=== PATIENT | female | born 1990 | race Hispanic/Latino ===

== ENCOUNTER 2018-09-28 09:55 | Emergency (ER) | payer BC ==
[2018-09-28 11:14] LABS: #Basophils 0.1 thou/uL (0.0-0.2); #Eosinphils 0.1 thou/uL (0.0-0.7); #Lymphocytes 2.8 thou/uL (1.20-3.40); #Monocytes 0.5 thou/uL (0.11-0.59); #Neutrophils 6.1 thou/uL (1.40-6.50); %Basophils 0.8 % (0.0-1.0); %Eosinophils 0.9 % (0.0-10.0); %Lymphocytes 29.7 % (21.0-51.0); %Neutrophils 63.6 % (42.0-75.0); Hemoglobin 12.9 g/dL (12.0-16.0); Mean Corpuscular Hemoglobin 28.5 pg (27.0-31.0); Mean Platelet Volume 8.3 fL (7.4-10.4); Platelet Count 421 thou/uL (130-400); RBC Distribution Width 12.8 % (11.5-14.5); Red Blood Cell (RBC) Count 4.55 mill/uL (4.20-5.40); White Blood Cell (WBC) Count 9.5 thou/uL (4.8-10.8)
[2018-09-28 11:25] LABS: BHCG - Serum POSITIVE (NEGATIVE); Pregs Control Background? CLEAR/WHITE (CLR/WHITE); Pregs Control Bar Appear? YES (CONTROL BAR)
[2018-09-28 11:50] LABS: Bilirubin Negative (Negative); Blood, Urine Negative (Negative); Clarity CLEAR (Clear); Glucose, Urine (Dipstick) Negative (Negative); Leukocyte Negative (Negative); Nitrite Negative (Negative); Protein, Urine (Dipstick) Negative (Neg-Trace); Specific Gravity, Urine 1.006 (1.002-1.036); pH, Urine 7.5 (5.0-9.0)
--- NOTE | 2018-09-28 12:52 | CON ---
DATE OF CONSULTATION: 09/28/2018 TIME: At 11:55 until 12:15 p.m. LOCATION: ER bed 20. REQUESTING PROVIDER: Donna (emergency room physician drilling assistant). REASON FOR CONSULT: Early . HISTORY OF PRESENT ILLNESS: This is a 28-year-old 2, para 0 with a prior miscarriag e, who when I was originally called about 30 minutes prior to seeing the patient, the physician janki corrales was concerned that she may have had a prior ectopic . The patient arrives here for low er abdominal cramping, but no bleeding or passage of clots. When I assessed the patient at bedside a nd reviewed her history, the patient did not have an ectopic , but her history was most comp atible with an early spontaneous loss. The patient did not receive methotrexate, will requ makenzie surgery, because there was no prior ectopic diagnosis made. The consultation that I had on the p princess with a rule out ectopic was a miscommunication between the patient and the initial provider. I have reviewed the patient's history and again confirmed that she had 1 prior spontaneous loss that di d not require surgical intervention. On review of systems, she is afebrile, has not passed any vagin al bleeding or clots, has had no recent intercourse, and is otherwise without other associated sympto ms. PAST MEDICAL HISTORY: Negative. PAST SURGICAL HISTORY: Tubes in ears. ALLERGIES: None. SOCIAL HISTORY: Negative for alcohol, tobacco, and drug use. PHYSICAL EXAMINATION: VITAL SIGNS: Blood pressures are 110s/70s with pulse in the 70s. Beta hCG was 1700 or approximate e arlier today. She was UCG positive, which prompted the beta hCG. GENERAL: Overall, on physical exam, generally, she is in no acute distress and was able to answer qu estions. ABDOMINAL EXAM: Deferred, as the history did not support an ectopic or any intraperitoneal abnormality. On ultrasound, ultrasound revealed what appeared to be a 5-week gestational sac intrauterine, but no yolk sac was yet seen. No other abnormalities. This was by verbal report. ASSESSMENT: 1. This is a G2, P0 with 1 prior miscarriage, who is now at 5 weeks by LMP (LMP 08/28/2018) with low er abdominal cramping, but no bleeding. History most compatible with a primary diagnosis of early pr egnancy. 2. Other diagnosis of rule out ectopic is not likely, as she has no risk factors and has no prior hi story of an ectopic. PLAN: 1. Rh type checked and she is Rh positive. 2. RhoGAM not needed since she has no bleeding. 3. RhoGAM not indicated, as she is Rh positive. 4. No evidence of ectopic or at risk at this stage. 5. The patient has her own Family Medicine OB provider, Dr. Carlotta Ovalle, who will follow up with a r epeat ultrasound in 2 weeks for confirmation of viability. Once again, I was called to see the patient for possible rule out ectopic, but that was a miscommunic ation, as the patient did not have a prior ectopic history.
--- NOTE | 2018-09-28 14:20 | ULT ---
PELVIC ULTRASOUND WITH BELTRAN SCALE AND DOPPLER COLOR FLOW AND SPECTRAL ANALYSIS: INDICATION: Pelvic pain, cramping. FINDINGS: Doppler evaluation reveals flow to each ovary. Physiologic-appearing cyst in the right ovary is pres ent. There is no focal uterine lesion identified. Within the region of the endometrium, there is a hypoechoic focus indicative of a gestational sac wit hout evidence of a yolk sac or pole. Nonspecific free pelvic fluid is present. Utilizing gestational sac measurement parameters, average gestational age by ultrasound is 5 weeks 1 day placing estimated date of delivery at 05/30/2019. IMPRESSION: 1. Probable intrauterine gestational sac, although too early for reliable assessment. Therefore, re commend correlation with serial HCG followup as well as short-term imaging followup for continued ass essment. 2. Mild nonspecific free pelvic fluid. POS: DAPHNEY
== END 2018-09-28 12:31 | disposition home or self-care (01) ==
LOC: ERS 09:55
DX: O99.89 Other specified diseases and conditions complicating pregnancy, childbirth and the puerperium (principal); R10.30 Lower abdominal pain, unspecified; O99.341 Other mental disorders complicating pregnancy, first trimester; F32.9 Major depressive disorder, single episode, unspecified; Z3A.01 Less than 8 weeks gestation of pregnancy
CPT/HCPCS: 36415; 76856; 81003; 84702; 84703; 85025; 86900; 86901

== ENCOUNTER 2018-10-05 09:41 | Outpatient (CLI) | payer BC ==
--- NOTE | 2018-10-05 12:09 | ULT ---
RIGHT UPPER QUADRANT ULTRASOUND: Date: 10-05-18 Provided Clinical History: Right upper quadrant pain. FINDINGS: The visualized IVC and pancreas appear normal. The liver demonstrates no evidence for mass or intrahe patic biliary ductal dilatation. The common duct is not dilated. Gallbladder demonstrates no stones, wall thickening or pericholecystic fluid. Right kidney demonstrates no hydronephrosis or mass. IMPRESSION: Unremarkable right upper quadrant ultrasound. POS: TPC
== END 2018-10-05 09:42 | disposition home or self-care (01) ==
LOC: SCSULT 09:41
PROVIDERS: ATTEND Physician Assistant
DX: R10.811 Right upper quadrant abdominal tenderness (principal)
CPT/HCPCS: 36415; 76705; 83036; 84144; 84702

== ENCOUNTER 2019-01-04 12:44 | Outpatient (CLI) | payer OTHER ==
--- NOTE | 2019-01-04 16:11 | ULT ---
OB ULTRASOUND: Date: 01-04-19 History: Positive . evaluation. FINDINGS: There is evidence of a single intrauterine gestation in variable presentation. Cardiac doppler demons trates heart tones with a heart rate of 147 beats/minute. The placenta is located posteriorly. The cervical os is not well visualized due to shadowing. The edg e of the placenta is also not well seen. While there does not appear to be evidence of placenta previ a, follow up evaluation is suggested given difficulty in visualization in this region. There is a normal amount of amniotic fluid. There is a rounded hypoechoic mass like appearing structure seen measuring 2 cm in greatest dimension s which is in a retroplacental location. Color flow evaluation does not demonstrate flow within this structure. This does not appear to be within the myometrium to suggest a small uterine fibroid. The e xact etiology is uncertain. This does not demonstrate typical findings of a retroplacental hemorrhage given rounded more mass like configuration. Cervical length measures 5.3 cm based on transabdominal imaging. measurements: BPD 4.5 cm 19 weeks 4 days HC 17.27 cm 19 weeks 6 days AC 14.07 cm 19 weeks 3 days FL 3.19 cm 19 weeks 6 days The estimated gestational age by ultrasound is 19 weeks 3 days with an JUANA of 05-28-19. Gestational ag e by last menstrual period is 19 weeks 1 day. Estimated weight by ultrasound is 307 grams (11 oz.). This represents 77th percentile for weight. anatomical structures not well not evaluated on this exam due to very early intrauterine gestat ional age. No definitive anomalies are able to be delineated based on this exam. IMPRESSION: 1. Hypoechoic structure measuring 2 cm which may be within the more posterior aspect of the placenta and possibly represents a chorioangioma, but the exact location is difficult to determine. This does not have the appearance of retroplacental hemorrhage. However, short internal follow up examination i n 4-6 weeks is recommended. 2. Difficulty in visualization of the leading edge of the placenta in relation to the internal cervic al os. There does not appear to be evidence of placenta previa. This can also be reevaluated on follo w up exam in 4-6 weeks. 3. Single intrauterine gestation in variable presentation with heart tones documented. The josh mated gestational age by ultrasound is 19 weeks 3 days with JUANA on 05-28-19. Estimated weight is 307 grams (11 oz.). Code T POS: SJTerri
== END 2019-01-04 12:45 | disposition home or self-care (01) ==
LOC: SCSULT 12:44
PROVIDERS: ATTEND Family Medicine
DX: Z34.92 Encounter for supervision of normal pregnancy, unspecified, second trimester (principal); Z3A.19 19 weeks gestation of pregnancy
CPT/HCPCS: 76805

== ENCOUNTER 2019-03-11 06:39 | Outpatient (CLI) | payer OTHER ==
--- NOTE | 2019-03-11 08:03 | ULT ---
Obstetrical ultrasound: 03/11/2019 COMPARISON: 01/04/2019 History: 29-year-old female undergoing assessment of anatomy, abnormality seen within the placenta on the prior examination TECHNIQUE: Multiplanar grayscale sonographic imaging of the gravid uterus obtained. FINDINGS: Single intrauterine gestation present with vertex presentation. Cervical length is approxim ately 4.2 cm. Placenta located posteriorly with no evidence for previa or abruption. Hypoechoic structure noted on prior examination associated with the placenta is not visualized on this exam. heart rate is 124 bpm. Four-chamber heart view, nose and lips, intracranial contents, and umbilical cord appear unremarkable. bladder, stomach, kidneys, and spine appear unremarkable. Amniotic fluid index is estimated at 13.3 cm. biometry: BPD 7.3 cm 29 weeks 3 days HC 27.4 cm 30 weeks 0 days AC 24.8 cm 29 weeks 1 day FL 5.8 cm 30 weeks 2 days Average age based on ultrasound is 29 weeks 5 days. Estimated date of delivery is 05/22/2019. Estimated weight is 1409 g +/- 206 g. Impression: Single intrauterine gestation as detailed above. No abnormalities are seen. The abnormality in the region of the placenta noted on the prior examination is not visualized on thi s scan.
== END 2019-03-11 06:40 | disposition home or self-care (01) ==
LOC: BICULT 06:39
PROVIDERS: ATTEND Family Medicine
DX: Z34.03 Encounter for supervision of normal first pregnancy, third trimester (principal); Z3A.29 29 weeks gestation of pregnancy
CPT/HCPCS: 36415; 76805; 82728; 82950; 85025; 87389

== ENCOUNTER 2019-03-15 17:45 | Day surgery (SDC) | payer OTHER ==
[2019-03-15 18:16] VITALS: BMI 35.6
--- NOTE | 2019-03-15 20:11 | ER ---
DATE OF SERVICE: 03/15/2019 TIME OF SERVICE: 1940 hours. PRESENTING COMPLAINT: The patient slipped and fell on bottom at store at 29 weeks' gestation. HISTORY OF PRESENT ILLNESS: Ms. Contreras is a 29-year-old, G1, P0, at 29 weeks with stated JUANA, sees Dr. Carlotta Ovalle. She reports she slipped and fell at a grocery store and landed on her bottom. She reports some decreased movement. No contractions. No bleeding. No rupture of membranes. INTERNATIONAL FREIGHT FORWARDER HISTORY: The patient's antepartum records not available on the unit. She reports being a primigravida with an uncomplicated . PAST MEDICAL HISTORY: None. PAST SURGICAL HISTORY: None. ALLERGIES: LATEX. MEDICATIONS: vitamins. SOCIAL HISTORY: Denies tobacco, alcohol, or drug use. FAMILY HISTORY: Noncontributory. REVIEW OF SYSTEMS: Noncontributory. PHYSICAL EXAMINATION: GENERAL: female. VITAL SIGNS: Blood pressure 98/85, pulse 85, respirations 18, temperature 97.9. HEENT: Within normal limits. LUNGS: Clear to auscultation bilaterally. HEART: Regular rate and rhythm. ABDOMEN: Soft and nontender without palpable contractions. Fundal height of 29 cm. No CVA tenderness noted. The patient has no visible bruising on her backside. FHTs are 140s. PELVIC: Deferred. EXTREMITIES: No clubbing, cyanosis, or edema. Prolonged monitoring, nonstress test was carried out for greater than 1 hour, which revealed no contractions, reactive fetus with a baseline of 140s to 150s, positive acceleration, no decelerations, no contractions noted. The patient stated she was feeling significant movement prior to discharge and movement was audible on the monitor. IMPRESSION: Status post slip and fall without evidence of abdominal trauma or signs or symptoms of placental abruption at 29 weeks. PLAN: Reassurance. The patient is discharged home with ER precautions. Keep scheduled followup with Dr. Carlotta Ovalle. Job ID: [id number]
== END 2019-03-15 19:55 | disposition home or self-care (01) ==
LOC: L&D/OP 17:45
PROVIDERS: ATTEND Family Medicine
DX: O36.8130 Decreased fetal movements, third trimester, not applicable or unspecified (principal); Z3A.29 29 weeks gestation of pregnancy; Z79.899 Other long term (current) drug therapy; Z91.040 Latex allergy status; W01.0XXA Fall on same level from slipping, tripping and stumbling without subsequent striking against object, initial encounter; Y92.512 Supermarket, store or market as the place of occurrence of the external cause
CPT/HCPCS: 99282

== ENCOUNTER 2019-05-28 08:58 | Inpatient (IN) | payer OTHER ==
[2019-05-28 09:30] VITALS: BMI 44.9
[2019-05-28] MEDS ORDERED: hydrALAZINE 20 MG/ML VIAL SLOW IVP PRN ×2 (10:16→11:47)
--- NOTE | 2019-05-28 10:19 | PDOC.LDHP ---
Labor and Delivery H&P Chief complaint: other (labor check) HPI: Time: 1010 Location: Triage L&D A Patient of Dr Dee Campos ([facility]) HPI: Ms. Contreras presents for labor check. Patient reports slight vaginal mucus discharge. She reports that she had a brief episode of chest tightness this morning. She reports achiness in her back and ankles. She reports orthostasis. Review of Systems: Review of systems is negative unless reported in HPI. Current gestational age (weeks): 39 (39.5) Due date: 05/30/19 Dating criteria: first trimester ultrasound Grav: 2 (Functional primigravida) Para: 0 (0010) OB History Details: Patient had a miscarriage at 6 weeks gestation when she was 20 yo. Current complications: none Abnormal US findings: No Past Medical History: None Current medications: pre-anabell vitamins Previous surgical history: none, other (tubes in ears during childhood) Allergies/Adverse Reactions: Allergies Allergy/AdvReac Type Severity Reaction Status Date / Time latex Allergy Verified 05/28/19 09:24 Social history: alcohol use (1 drink/week) - Physical Exam General: NAD Heart: RRR Lungs: CTAB Abdomen: gravid Extremeties: trace edema FHT: category 2, late decelerations (2 intermittent late decels..but no longer recurrent), absent or minimal variables - Vaginal Exam cm dilated: 3 Effacement: 50% - OB Labs Blood type: O RH: positive Antibody Screen: negative HIV: negative RPR: negative HEPSAg: negative 1 hour GCT: negative GBS: negative Rubella: immune - Assessment Threated labor at Full term...latent phase; GBS negative - Plan Plan: observation in L&D (We will reassess in 2 hours for cervical change. Close monitoring of FHTs...currently lates have spont resolved and now with mild -mod variability.)
[2019-05-28] MEDS ORDERED: Promethazine HCl 25 MG/ML VIAL IM PRN ×3 (11:47→15:45)
[2019-05-28] MEDS ORDERED: Ibuprofen 800 MG TAB PO PRN (11:47)
[2019-05-28] MEDS ORDERED: Butorphanol Tartrate 1 MG/ML VIAL SLOW IVP PRN (11:47)
[2019-05-28] MEDS ORDERED: HYDROcodone/Acetaminophen 5/325 mg Tablet PO PRN ×2 (11:47)
[2019-05-28] MEDS ORDERED: NS / Oxytocin 40 units/1000ml 1,000 ML IV PRN (11:47)
[2019-05-28] MEDS ORDERED: Lidocaine 1% (PF) 30 ML VIAL SC PRN (11:47)
[2019-05-28] MEDS ORDERED: Ondansetron PF 4 MG/2 ML Vial IVP PRN ×3 (11:47→15:45)
--- NOTE | 2019-05-28 11:47 | PDOC.EVN ---
Event Note - Event Note Event Note: 1147 Follow up: Patient now 4cm...will admit to Dr Larson who is covering. [place] Text sent
[2019-05-28] MEDS: Lactated Ringer's 1,000 ML IV SCH ×2 (12:36→18:55)
[2019-05-28 13:11] LABS: Hemoglobin 12.3 g/dL (12.0-16.0); Mean Corpuscular HGB CONC 32.5 g/dL (32.0-36.0); Mean Corpuscular Hemoglobin 29.2 pg (27.0-31.0); Mean Corpuscular Volume 89.7 fL (78.0-98.0); Mean Platelet Volume 10.4 fL (7.4-10.4); Platelet Count 212 thou/uL (130-400); RBC Distribution Width 12.8 % (11.5-14.5); White Blood Cell (WBC) Count 13.8 thou/uL (4.8-10.8)
--- NOTE | 2019-05-28 13:29 | PDOC.EVN ---
Event Note - Event Note Event Note: OBGYN recreation therapy aides teacher: FHT review Asked by patient's RN and Dr Larson top eval strip. Timeis 1325. Patient has just had SROM with malodorous fluid. temp however is 99. I suspect subclinical infection, even though temp not 100.4. Strip still cat 2...minimal variability noted, no decelks. As strip is persistent Cat 2, recommend primary CS for nonreassuring FHTs remote from delivery in the setting od possible subclinical infection. I have just left Dr Larson a tiger text and told the same information to the patient's nurse, erica
[2019-05-28] MEDS ORDERED: Ampicillin 2 GM in Sodium Chloride 0.9% 100 ML IVPB SCH (13:45)
[2019-05-28] MEDS ORDERED: Bicitra 30 ML UDCUP ONE (13:45)
[2019-05-28 13:48] LABS: Syphilis Antibody Nonreactive (Nonreactive); Syphilis Antibody Index 0.04 S/CO (<1.00 Non-Reactive)
[2019-05-28 13:49] LABS: HBSAg Index 0.24 S/CO (0-0.99); HIV (1/2) Antibody/Antigen Non-Reactive (NonReactive); HIV 1/2 INDEX 0.12 S/CO (<1.00); Hep B Surf Ag Non-Reactive S/CO (NonReactive)
--- NOTE | 2019-05-28 13:59 | PDOC.EVN ---
Event Note - Event Note Event Note: Called to L&D after SROM with thick, particulate meconium with foul smell and continued Category II strip with minimal variability. We attempted repoisitioning, IVF bolus without improvement in the strip. We did start amp and gent for the foul smelling fluid. No fever at this time. After discussion with the patient and Dr. Peterson we agreed that delivery would be the best course of action at this time. Anesthesia called. Dr. Palacios and myself with do the surgery with Dr. Peterson as supervising physician.
[2019-05-28] MEDS ORDERED: Bicitra 30 ML UDCUP PO SCH (14:00)
[2019-05-28] MEDS ORDERED: GENTAMICIN SULFATE IVPB SCH (14:00)
[2019-05-28] MEDS ORDERED: Azithromycin 500 MG in Sodium Chloride 0.9% 250 ML 250 ML IVPB SCH (14:00)
[2019-05-28] MEDS ORDERED: SODIUM CHLORIDE 0.9% IVPB SCH (14:00)
[2019-05-28] MEDS ORDERED: Oxytocin 10 UNITS/ML VIAL ONE ×2 (14:09→15:28)
[2019-05-28] MEDS ORDERED: MORPHINE 5 MG/10 ML PF VIAL ONE (14:09)
[2019-05-28] MEDS ORDERED: Ondansetron PF 4 MG/2 ML Vial ONE ×4 (14:09→15:40)
[2019-05-28] MEDS ORDERED: ePHEDrine/0.9% NaCl/PF SYRINGE 50 mg/10 ml ONE (14:09)
[2019-05-28] MEDS ORDERED: Meperidine HCl/PF 25 MG/ML VIAL SLOW IVP PRN ×2 (14:27→15:45)
[2019-05-28] MEDS ORDERED: Promethazine HCl 25 MG SUPP PR PRN ×2 (14:27→15:45)
[2019-05-28] MEDS ORDERED: L&D-Morphine 4 MG/ML VIAL SLOW IVP PRN ×2 (14:27→15:45)
[2019-05-28] MEDS ORDERED: Naloxone HCl 0.4 mg/ml Vial IV PRN ×2 (14:27→15:45)
[2019-05-28] MEDS ORDERED: Ketorolac Tromethamine 30 MG/ML VIAL IVP PRN ×2 (14:27→15:45)
[2019-05-28] MEDS ORDERED: Ondansetron HCl/PF 4 MG/2 ML Vial IVP PRN ×2 (14:27→15:45)
[2019-05-28] MEDS ORDERED: diphenhydrAMINE 50 MG/ML VIAL IVP PRN ×2 (14:27→15:45)
[2019-05-28] MEDS ORDERED: Naloxone HCl 0.4 mg/ml Vial IVP PRN ×4 (14:27→15:45)
[2019-05-28] MEDS ORDERED: HYDROmorphone 2 MG/ML VIAL SLOW IVP PRN ×2 (14:27→15:45)
[2019-05-28] MEDS ORDERED: Communication Order-Pharmacy FS SCH ×2 (14:30→15:45)
[2019-05-28] MEDS ORDERED: Ketorolac Tromethamine 30 MG/ML VIAL IVP SCH ×2 (14:30→15:45)
[2019-05-28] MEDS ORDERED: Midazolam HCl 2 mg/2 ml Vial ONE (14:59)
[2019-05-28] MEDS ORDERED: Lidocaine 1% (PF) 30 ML VIAL ONE (15:13)
[2019-05-28 15:18] LABS: pH (Cord, venous) 7.36 (7.32-7.43)
--- NOTE | 2019-05-28 15:28 | PDOC.OPDEL ---
OB Operative/Delivery Note Delivery Dr/Surgeon: Neo/Nicholas/Philip (Primary: Philip, Secondary Neo, Second Assist: Nicholas) Assist: Nicholas Pre-Delivery Diagnosis: active labor, non-reassuring tracing, ruptured membrane, other (Suspected subacute IAI) Procedure/Post Delivery Dx: primary low transverse CS (2 layer uterine closure) Anesthesia: spinal - Additional Findings/Plan Placenta delivered: spontaneous (Sent to path, NX x1 reduced, 3VC) findings: low transverse hysterotomy without extension, normal uterus, normal tubes, normal ovaries, other (There was a persistent ooze froma venous keita at mid hysterotomy persisting after primary closure. I rendered this hemostatic by 2 figure of 8 stictches free from bladder dome.) Estimated blood loss: See op Note (I suspect 700ml) Compilations/Other Findings: Vigorous Spont Cry NICU present No resus needed Strong Amine odor to AF Placenta to path CORD GASES SENT SEE FULL DICTATION BY OTHER SURGEONS Post delivery plan: routine recovery
[2019-05-28] MEDS ORDERED: ePHEDrine 50 MG/ML VIAL ONE (15:40)
[2019-05-28] MEDS ORDERED: diphenhydrAMINE 25 MG CAP PO PRN (16:03)
[2019-05-28] MEDS ORDERED: Misoprostol 200 MCG TAB PR PRN (16:03)
[2019-05-28] MEDS ORDERED: Lanolin Ointment 7 GM TUBE TOP PRN (16:03)
[2019-05-28] MEDS ORDERED: Acetaminophen 325 MG TAB PO PRN (16:03)
[2019-05-28] MEDS ORDERED: Methylergonovine 0.2 MG TAB PO PRN (16:03)
[2019-05-28] MEDS ORDERED: Methylergonovine 0.2 MG/ML VIAL IM PRN (16:03)
[2019-05-28] MEDS ORDERED: Naloxone HCl 0.4 mg/ml Vial ONE (16:48)
[2019-05-28] MEDS ORDERED: Ketorolac Tromethamine 30 MG/ML VIAL ONE (16:48)
[2019-05-28] MEDS ORDERED: hydrALAZINE 20 MG/ML VIAL SLOW IVP SCH (18:00)
[2019-05-28] MEDS: metroNIDAZOLE 500 MG in Premix Bag 1 BAG IVPB SCH (21:33)
[2019-05-28] MEDS: Ampicillin 2 GM in Sodium Chloride 0.9% 100 ML IVPB SCH ×2 (21:33→23:32)
[2019-05-28] MEDS: Ferrous Sulfate 325 MG TAB PO SCH (21:38)
[2019-05-29] MEDS: metroNIDAZOLE 500 MG in Premix Bag 1 BAG IVPB SCH ×2 (00:54→10:04)
[2019-05-29] MEDS ORDERED: Gentamicin Sulfate 100 MG in Premix Bag 1 BAG IVPB SCH (02:00)
[2019-05-29] MEDS ORDERED: HYDROcodone/Acetaminophen 5/325 mg Tablet PO PRN ×3 (04:00→18:28)
[2019-05-29] MEDS: Ampicillin 2 GM in Sodium Chloride 0.9% 100 ML IVPB SCH ×3 (05:38→18:18)
[2019-05-29] MEDS: Lactated Ringer's 1,000 ML IV SCH ×2 (05:50→13:40)
[2019-05-29 06:45] LABS: Band 19 % (5-11); Eosinophils 1 % (0-10); Hemoglobin 10.5 g/dL (12.0-16.0); Lymphocytes 11 % (21-51); MDiff Complete? YES; Mean Corpuscular HGB CONC 32.1 g/dL (32.0-36.0); Mean Corpuscular Volume 90.4 fL (78.0-98.0); Mean Platelet Volume 9.8 fL (7.4-10.4); Monocytes 3 % (0-10); Neutrophil 66 % (42-75); Platelet Count 194 thou/uL (130-400); Red Blood Cell (RBC) Count 3.63 mill/uL (4.20-5.40); White Blood Cell (WBC) Count 18.8 thou/uL (4.8-10.8)
[2019-05-29] MEDS: Ferrous Sulfate 325 MG TAB PO SCH ×2 (07:29→19:09)
--- NOTE | 2019-05-29 08:17 | PDOC.PP ---
Post Progress Note Post Day #: 1 Subjective: Pt is resting in bed. Reports having a little pain. Reports feeling feverish throughout the night. Denies any chills. Reports lochia as light. Has not gotten up and moved around. Denies passing gas. Has eaten some clears. Reported some mild nausea. Denies any vomiting. Denies any headaches, lightheadness or dizziness. Denies any chest pain or SOB. Denies any leg swelling. Pt reports having some increased pain this morning. PO intake tolerated: yes Flatus: no Ambulation: no Vital Signs (12 hours) Temp Pulse Resp BP Pulse Ox 05/29/19 07:42 98.7 F 67 14 85/52 L 96 05/29/19 05:30 99.5 F 72 16 101/58 L 05/28/19 23:43 99.5 F 73 16 113/57 L 05/28/19 20:30 99.5 F 80 16 128/60 Weight Weight 104.326 kg - Physical Examination General: NAD Cardiovascular: no m/r/g, RRR Respiratory: clear to auscultation bilaterally Abdominal: + bowel sounds, lochia (light), no distention Deviation from normal: Uterus still moderately tender to palpation. Not hot to the touch. Fundus firm & at: below umbilicus Extremities: negative homans (B) Skin: CS incision dry & intact (wound vac in place. No sign of defect or infection at this time.), no rash Neurological: no gross focal deficits Psychiatric: A&Ox3, normal affect Result Diagrams: 05/29/19 05:17 Additional Labs: Post Labs Blood Type O POSITIVE 05/28/19 12:49 Hep Bs Antigen Non-Reactive S/CO (NonReactive) 05/28/19 12:49 (1) Delivery by section Code(s): [id number] - Status: Acute (2) Intrauterine infection Code(s): O98.919 - UNSP MATERNAL INFEC/PARASTC DISEASE COMP PREG, UNSP TRI Status: Acute - Assessment/Plan 29 yo delivered TAGA male via primary LTCS @ 39.5 weeks on @ 1442. Pt went to due to concern for subclinical Chorio and Non- reassuring heart tones. Post Op Day1 -Routine Post Care. -Pt reports having a little pain. Will hue tylenol and ibuprofen and have norco for breakthrough. -- Will consult . Reports doing well at this time. -Hgb down from 12.3->10.5 today. BP this morning a little low. will continue to monitor and will give fluid bolus if low. Subclinical Chorioamnioitis -WBC 18.8. -Placenta sent for pathology -Pt reports feeling feverish all night. No recorded fevers. -Pt receiving Amp/Gent/Flagyl for abx coverage. Will continue for 48 hours due to pt subjective fevers.
[2019-05-29] MEDS ORDERED: Adacel (T-DAP) 0.5 ML SYRINGE IM ONE (09:00)
[2019-05-29] MEDS: Prenatal Vitamin 1 TAB PO SCH (10:05)
[2019-05-29] MEDS: Ibuprofen 800 MG TAB PO SCH ×2 (14:30→23:09)
[2019-05-29] MEDS: HYDROcodone/Acetaminophen 5/325 mg Tablet PO PRN ×2 (18:34→22:35)
[2019-05-29] MEDS: Simethicone Chewable 80 MG TAB PO PRN (20:48)
[2019-05-29] MEDS ORDERED: Sodium Chloride 0.9% 10 ML ONE (23:35)
[2019-05-30] MEDS: Ampicillin 2 GM in Sodium Chloride 0.9% 100 ML IVPB SCH ×2 (00:15→05:00)
[2019-05-30] MEDS: Lactated Ringer's 1,000 ML IV SCH ×3 (00:26→13:52)
[2019-05-30] MEDS: Ibuprofen 800 MG TAB PO SCH ×3 (05:00→21:26)
--- NOTE | 2019-05-30 08:47 | PDOC.PP ---
Post Progress Note Post Day #: 2 Subjective: Pt resting in bed. Reports pain being well controlled. Reports tolerating PO. Chris any n/v. Pt reports passing gas but no BM yet. Denies any fevers/chill or feeling hot. Denies any chest pain or SOB. Denies any swelling. Denies any dizziness, lightheadness or vision changes. PO intake tolerated: yes Flatus: yes Ambulation: yes Vital Signs (12 hours) Temp Pulse Resp BP BP Pulse Ox 05/30/19 07:40 97.9 F 67 16 132/63 99 05/30/19 05:00 98.9 F 70 16 89/51 L 05/29/19 23:12 99.0 F 83 16 138/70 Weight Weight 104.326 kg - Physical Examination General: NAD Cardiovascular: no m/r/g, RRR Respiratory: clear to auscultation bilaterally, non-labored breathing Abdominal: + bowel sounds, lochia (reports as light), no distention, appropriately TTP Fundus firm & at: below umbilicus Extremities: negative homans (B) Skin: CS incision dry & intact (Wound vac in place. No sign of redness or drainage at this time.), no rash Neurological: no gross focal deficits Psychiatric: A&Ox3, normal affect Result Diagrams: 05/29/19 05:17 Additional Labs: Post Labs Blood Type O POSITIVE 05/28/19 12:49 Hep Bs Antigen Non-Reactive S/CO (NonReactive) 05/28/19 12:49 (1) Delivery by section Code(s): [id number] - Status: Acute (2) Intrauterine infection Code(s): O98.919 - UNSP MATERNAL INFEC/PARASTC DISEASE COMP PREG, UNSP TRI Status: Acute - Assessment/Plan 29 yo delivered TAGA male via primary LTCS @ 39.5 weeks on @ 1442. Pt went to due to concern for subclinical Chorio and Non- reassuring heart tones. Post Op Day 2 -Routine Post Care. -Pt reports having a little pain. Will hue tylenol and ibuprofen and have norco for breakthrough. -- Will consult . Reports doing well at this time. -Hgb down from 12.3->10.5 on check yesterday. Vital signs stable -Counseled patient on getting up and moving around. Subclinical Chorioamnioitis -WBC 18.8 yesterday. Denies any fevers or chillls. No recorded fevers -Placenta cx- NGTD at 36 hours. -Pt receiving Amp/Gent/Flagyl for abx coverage. Can discontinue today.
[2019-05-30] MEDS: Ferrous Sulfate 325 MG TAB PO SCH ×2 (09:00→21:27)
[2019-05-30] MEDS: Prenatal Vitamin 1 TAB PO SCH (09:00)
[2019-05-30] MEDS: HYDROcodone/Acetaminophen 5/325 mg Tablet PO PRN ×2 (15:07→20:11)
[2019-05-30] MEDS: Simethicone Chewable 80 MG TAB PO PRN (20:11)
[2019-05-31] MEDS: Ibuprofen 800 MG TAB PO SCH ×2 (05:59→12:50)
[2019-05-31] MEDS: Simethicone Chewable 80 MG TAB PO PRN ×2 (06:29→12:50)
[2019-05-31] MEDS: Ferrous Sulfate 325 MG TAB PO SCH (07:40)
[2019-05-31 07:46] VITALS: BP 125/64; TEMP 98.4
--- NOTE | 2019-05-31 08:04 | DN ---
DATE OF PROCEDURE: 05/29/2019 ATTENDINGS: 1. Satish Larson MD. 2. Isreal Peterson MD. PROCEDURE PERFORMED: A primary low transverse section. PREOPERATIVE DIAGNOSES: 1. Term intrauterine . 2. Subclinical chorioamnionitis. POSTOPERATIVE DIAGNOSES: 1. Term intrauterine . 2. Subclinical chorioamnionitis. ANESTHESIA: Spinal. INDICATIONS: This patient is a 29-year-old, G2, P0-0-1-0 female at 39 and 5 weeks gestation, who presented with concern for chorioamnionitis due to foul-smelling odor and non-reassuring heart tones. Infant heart tones had some recurrent lates and also had minimal variability, went for primary . PROCEDURE IN DETAIL: After risks, benefits, and alternatives were explained to the patient, she gave informed consent. Preoperative antibiotics included Ancef 2 g IV, 2 g of ampicillin, and also azithromycin 500 mg IV. The patient was then taken to the operating room and spinal anesthesia was initiated. She was placed on the supine position with a left tilt, and prepped and draped in the usual sterile fashion. A Pfannenstiel incision was made with a scalpel and carried down to the level of the fascia, which was sharply nicked. Fascial cut was extended bilaterally with Figueroa scissors. Inferior and superior edges of the cut fascial edges were elevated with Arely clamps and underlying rectus muscles were sharply and bluntly dissected free. Recti were divided digitally and retracted manually. The peritoneum was entered bluntly and retracted manually. An Luis M O retractor was placed. Low transverse score was made with the scalpel and the uterus was entered with the midline with the scalpel, kind of green-yellow foul odor smelling fluid was noted. The hysterotomy was extended manually. Infant was noted to be vertex and easily delivered by fundal pressure. Mouth and nares were bulb suctioned. Cord clamped and was cut and sent for blood gas and then, grossly normal male was handed to the waiting nurse. After cord gas was obtained and cord blood was obtained, the placenta was manually extracted and found to be intact with 3-vessel cord and was sent for pathology and culture due to concern for chorio. The uterus was externalized and the endometrium was curetted with a dry lap. The uterus was closed with a running locking 1 Monocryl CTX suture. We then placed any imbricating layer with 1 Monocryl suture in a running nonlocking fashion. There was noticed to be a venous leak, it was not hemostatic, and so we put in with a 2-0 chromic multiple [id number] stitches, which eventually noted to be hemostatic. The abdomen was irrigated with saline and suctioned free of clots. The uterus was internalized and the hysterotomy was again noted to be hemostatic. We then irrigated again with saline. The peritoneum was then closed with a 2-0 chromic running nonlocking suture. We then irrigated the fascial layer as well with saline solution due to concern for chorio. We also applied a 20 mL of lidocaine as the patient was experiencing a little bit of pain. The fascia was then closed with a running nonlocking 0 PDS suture. The subcu tissue was irrigated and any bleeders were made hemostatic with Bovie cautery. The subcu was then approximated with the 2-0 chromic suture with 3 interrupted stitches. The skin was approximated with francisco, and a wound VAC dressing was placed. All counts were correct. The patient tolerated the procedure well and was taken to the recovery room in stable condition. EBL was noted to be 650. COMPLICATIONS: Concern for chorioamnionitis. SPECIMENS: Cord blood and cord specimen sent to lab for blood type and cord gas and grossly normal placenta with 3-vessel cord also sent for pathology and culturing. FINDINGS: Grossly normal male infant with Apgars of 8 and 9. Drains Holly to gravity, draining clear urine. Job ID: [id number]
[2019-05-31] MEDS: Prenatal Vitamin 1 TAB PO SCH (10:50)
[2019-05-31] MEDS: HYDROcodone/Acetaminophen 5/325 mg Tablet PO PRN (14:34)
--- NOTE | 2019-05-31 17:10 | PDOC.PP ---
Post Progress Note Post Day #: 3 PO intake tolerated: yes Flatus: yes Ambulation: yes Vital Signs (12 hours) Temp Pulse Resp BP Pulse Ox 05/31/19 07:45 98.4 F 69 20 125/64 97 Weight Weight 104.326 kg - Physical Examination General: NAD Cardiovascular: no m/r/g, RRR Respiratory: clear to auscultation bilaterally, non-labored breathing Abdominal: + bowel sounds, lochia (reports as light), no distention, appropriately TTP Fundus firm & at: below umbilicus Extremities: negative homans (B) Skin: CS incision dry & intact (wound vac in place. No redness or sign of infection), no rash Neurological: no gross focal deficits Psychiatric: A&Ox3, normal affect Result Diagrams: 05/29/19 05:17 Additional Labs: Post Labs Blood Type O POSITIVE 05/28/19 12:49 Hep Bs Antigen Non-Reactive S/CO (NonReactive) 05/28/19 12:49 (1) Delivery by section Code(s): CHZ5160 - Status: Acute (2) Intrauterine infection Code(s): O98.919 - UNSP MATERNAL INFEC/PARASTC DISEASE COMP PREG, UNSP TRI Status: Acute - Assessment/Plan 29 yo delivered TAGA male via primary LTCS @ 39.5 weeks on @ 1442. Pt went to due to concern for subclinical Chorio and Non- reassuring heart tones. Post Op Day 3 -Routine Post Care. -Pain currently controlled with current pain regimen. . -- consulted. Reports doing well. -Hgb down from 12.3->10..5 post op. Vital signs stable -Pt ready for d/c at this time. Denies any more fevers or sign of infection. Discussed routine d/c instructions with patient Subclinical Chorioamnioitis -Denies any fevers or chillls. No recorded fevers -Placenta cx- NGTD at 36 hours. -Received 48 hours of abx. .
== END 2019-05-31 17:16 | disposition home or self-care (01) | DRG 786 ==
LOC: L&D/OP 08:58 → EEVIPCON 08:58 → L&D-LIB 12:26 → L&D 14:35 → 3SW 20:28
PROVIDERS: ADMIT Family Medicine; ATTEND Family Medicine
PROC: 10D00Z1 Extraction of Products of Conception, Low, Open Approach (ICD-10-PCS; principal; 2019-05-29)
DX: O76 Abnormality in fetal heart rate and rhythm complicating labor and delivery (principal); O41.1230 Chorioamnionitis, third trimester, not applicable or unspecified; O77.0 Labor and delivery complicated by meconium in amniotic fluid; O69.81X0 Labor and delivery complicated by cord around neck, without compression, not applicable or unspecified; Z3A.39 39 weeks gestation of pregnancy; Z37.0 Single live birth
CPT/HCPCS: 36415; 51702; 82805; 85025; 85027; 86780; 86850; 86900; 86901; 87070; 87076; 87205; 87340; 87389; 88307; 99285; J0290; J0360; J0456; J0690; J1580; J1885; J2001; J2250; J2274; J2310; J2405; J2590; J3490; J7050

== ENCOUNTER 2019-06-25 23:22 | Emergency (ER) | payer OTHER ==
[2019-06-26 00:10] LABS: #Basophils 0.1 thou/uL (0.0-0.2); #Eosinphils 0.2 thou/uL (0.0-0.7); #Lymphocytes 3.7 thou/uL (1.20-3.40); #Monocytes 0.5 thou/uL (0.11-0.59); %Basophils 0.5 % (0.0-1.0); %Eosinophils 2.1 % (0.0-10.0); %Lymphocytes 32.4 % (21.0-51.0); %Monocytes 4.6 % (0.0-10.0); %Neutrophils 60.5 % (42.0-75.0); Mean Corpuscular HGB CONC 34.2 g/dL (32.0-36.0); Mean Corpuscular Hemoglobin 30.3 pg (27.0-31.0); Mean Corpuscular Volume 88.6 fL (78.0-98.0); Mean Platelet Volume 7.7 fL (7.4-10.4); Platelet Count 386 thou/uL (130-400); RBC Distribution Width 12.1 % (11.5-14.5); Red Blood Cell (RBC) Count 4.28 mill/uL (4.20-5.40); White Blood Cell (WBC) Count 11.5 thou/uL (4.8-10.8)
[2019-06-26 00:25] LABS: ALT (SGPT) 23 U/L (8-55); AST (SGOT) 18 U/L (5-34); Albumin 4.1 g/dL (3.5-5.0); Alkaline Phosphatase 140 U/L (40-150); Anion Gap 14 mmol/L (10-20); BUN (Urea Nitrogen) 16 mg/dL (7.0-18.7); Bilirubin, Total Less than 0.2 mg/dL (0.2-1.2); Calc. Creatinine Clearance 0 mL/min (70-130); Calcium 9.5 mg/dL (7.8-10.44); Carbon Dioxide 24 mmol/L (22-29); Chloride 103 mmol/L (98-107); Estimated GFR-MDRD 67; Globulin 3.4 g/dL (2.4-3.5); Glucose 95 mg/dL (70-105); Lipase 20 U/L (8-78); Potassium 3.9 mmol/L (3.5-5.1); Protein, Total 7.5 g/dL (6.0-8.3); Sodium 137 mmol/L (136-145)
[2019-06-26 00:26] LABS: Bilirubin Negative (Negative); Blood, Urine 1+ (Negative); Clarity Clear (Clear); Glucose, Urine (Dipstick) Normal (Negative); Leukocyte 250 Leu/uL (Negative); Nitrite Negative (Negative); Protein, Urine (Dipstick) Negative (Neg-Trace); RBC/HPF 0-3 HPF (0-3); Urobilinogen Normal mg/dL (Less than 2)
[2019-06-26 00:28] LABS: Bacteria/HPF 1+ HPF (None Seen)
--- NOTE | 2019-06-26 08:02 | CT ---
PRELIMINARY REPORT/[facility]/EMERGENCY AFTER HOURS PROCEDURE EXAM: CT Abdomen and Pelvis With Contrast EXAM DATE/TIME: 06/26/2019 12:19 AM CLINICAL HISTORY: 29 years old, female; Prior surgery; Surgery date: 1-6 months; Surgery type: ; Patient HX: 29 yof 4 weeks post complicated by c section and chorioamnionitis presented for persistent lower abdominal pain worse on right. Reports was treated for UTI earlier this week. Report pain with urination, +vaginal discharge and occasional nauseas. Denies fever, chills, vomiting, diarrhea or vag inal bleeding. TECHNIQUE: Imaging protocol: Axial computed tomography images of the abdomen and pelvis with intravenous contras t. COMPARISON: No relevant prior studies available. FINDINGS: Liver: Normal. No mass. Gallbladder and bile ducts: Normal. No calcified stones. No ductal dilation. Pancreas: Normal. No ductal dilation. Spleen: Normal. No splenomegaly. Adrenals: Normal. No mass. Kidneys and ureters: Normal. No hydronephrosis. Stomach and bowel: Normal. No obstruction. No mucosal thickening. Appendix: No evidence of appendicitis. Intraperitoneal space: Normal. No free air. No significant fluid collection. Vasculature: Normal. No abdominal aortic aneurysm. Lymph nodes: Normal. No enlarged lymph nodes. Bladder: Unremarkable as visualized. Reproductive: The uterus appears heterogeneous with hypodense regions seen inferiorly, consistent wit h recent section procedure. Bones/joints: No acute fracture. No dislocation. Soft tissues: Unremarkable. IMPRESSION: No definite acute abdominal pathology. If there is clinical concern for endometritis, a pelvic ultras ound may be considered. Thank you for allowing us to participate in the care of your patient. Dictated and Authenticated by: Alysia De Paz MD 06/26/2019 1:05 AM Central Time ([place] & [place]) FINAL REPORT CT ABDOMEN AND PELVIS WITH IV CONTRAST: I agree with the preliminary report given by Dr. Alysia De Paz of [facility]. CODE QA POS: [facility]
--- NOTE | 2019-06-26 08:12 | ULT ---
PRELIMINARY REPORT/[facility]/EMERGENCY AFTER HOURS PROCEDURE EXAM: US Pelvis Complete, Transabdominal EXAM DATE/TIME: 06/26/2019 1:43 AM CLINICAL HISTORY: 29 years old, female; Abnormal findings; Abnormal imaging test; Prior surgery; Surgery date: 1-6 tamara hs; Surgery type: TECHNIQUE: Imaging protocol: Real-time transabdominal pelvic ultrasound with image documentation. Complete exam. COMPARISON: CT Abdomen Pelvis W Con 06/26/2019 12:19 AM FINDINGS: Uterus/cervix: Uterus is anteverted and measures 11.0 x 5.2 x 6.7 cm. Endometrium is homogeneous in e chotexture, measuring 10 mm in thickness at the uterine fundus. Free fluid: None. Bladder: Normal. Other findings: Ovaries not visualized, secondary to overlying bowel gas. IMPRESSION: No acute abnormality. Thank you for allowing us to participate in the care of your patient. Dictated and Authenticated by: Abdiaziz Zapata MD 06/26/2019 3:38 AM Central Time ([place] & [place]) FINAL REPORT TRANSABDOMINAL PELVIC ULTRASOUND: I agree with the preliminary report given by Dr. Abdiaziz Zapata of [facility]. CODE QA POS: [facility]
[2019-06-26] MEDS ORDERED: ISOVUE-370 76%-LOCM 1 ML ONE (16:40)
--- NOTE | 2019-06-28 08:18 | CON ---
DATE OF CONSULTATION: 06/26/2019 REFERRING PHYSICIAN: Dr. Larson . CHIEF COMPLAINT: Abdominal pain. HISTORY OF PRESENT ILLNESS: The patient is a 29-year-old female, now about 4 weeks out from an unscheduled . She reports that she has been having a 2- week history of sharp pelvic pains that she describes as first being in her lower abdomen and now a little bit higher in her abdomen. She was seen a couple of days ago by her primary provider and was diagnosed with urinary tract infection and started on antibiotics. Subsequently, she was called to discontinue these antibiotics as her culture came back negative. She was counseled that she would be getting an order for a CT scan to evaluate for this pain. The patient chose to present early this morning to the emergency room for further evaluation. ER physician's workup included abdominal CT scan and pelvic ultrasound, CBC and CMP and the CT scan was negative for any pathology. Pelvic ultrasound also negative for any acute process. White count was 11.5 with neutrophil percentage of 60.5, and platelets of 386, 000. CMP all within normal limits. Urine was a contaminated specimen as the patient just voided into a cup and reportedly did not perform a clean-catch. At time of my evaluation, she has again confirmed that she was having this sharp abdominal pain for the last couple of weeks that she says is worse with activity and movement. The patient reports that she has had very little activity since the time of her . In fact, she has since before deliveries had her bed broken down with the mattress on the floor. She reports that she carries only the baby and denies any other significant activity. REVIEW OF SYSTEMS: The patient denies any fever, shortness of breath or chest pain. She denies diarrhea. Denies drainage or redness from her incision site. Denies worsening bleeding. PAST MEDICAL HISTORY: Anxiety and depression. PAST SURGICAL HISTORY: Prior section. ALLERGIES: LATEX. MEDICATIONS: None currently. PHYSICAL EXAMINATION: VITAL SIGNS: Blood pressure 115/81, pulse is 71, respiratory rate of 16 saturating 98% on room air. GENERAL: She appears to be in no acute distress. She is alert, oriented, cooperative, and pleasant to interact with. HEAD: Normocephalic, atraumatic. LUNGS: Clear to auscultation bilaterally. HEART: Has regular rate and rhythm. ABDOMEN: Soft. She does have some tenderness, but has no peritoneal signs or guarding. EXTREMITIES: Nontender and nonedematous. Incision is clean, dry, and intact without any induration or erythema. LABORATORY AND IMAGING DATA: As reported in the HPI. ASSESSMENT AND PLAN: The patient is a 29-year-old female, who is 4 weeks out status post a section, here for pain. The patient has no evidence of infection with a normal white count. Essentially, no findings on CT scan or ultrasound. No subjective symptoms apart from the pain suggesting infection. The patient has been given reassurance and has been counseled to follow up with her primary provider on Friday for further evaluation. In my opinion, the patient is good for discharge home. In discussion with the emergency room physician, empirically if we were concerned about a uterine infection, doxycycline and metronidazole would be appropriate. Job ID: [id number] MTDD
[2019-06-29 04:53] LABS: Chlamydia by PCR Not Detected (NotDetected); GC by PCR Not Detected (NotDetected)
== END 2019-06-26 05:09 | disposition home or self-care (01) ==
LOC: ERS 23:22
DX: R10.2 Pelvic and perineal pain (principal); F41.9 Anxiety disorder, unspecified; F32.9 Major depressive disorder, single episode, unspecified
CPT/HCPCS: 36415; 74177; 76856; 80053; 81003; 81015; 83690; 85025; 87086; 87480; 87491; 87510; 87591; 87660; 96360; 96361; Q9966

== ENCOUNTER 2022-03-28 22:39 | Emergency (ER) | payer BC ==
[2022-03-28 23:43] LABS: #Basophils 0.1 thou/uL (0.0-0.2); #Eosinphils 0.1 thou/uL (0.0-0.7); #Lymphocytes 4.4 thou/uL (1.20-3.40); #Monocytes 0.8 thou/uL (0.11-0.59); #Neutrophils 7.4 thou/uL (1.40-6.50); %Basophils 0.5 % (0.0-1.0); %Lymphocytes 34.5 % (21.0-51.0); %Monocytes 6.1 % (0.0-10.0); %Neutrophils 57.9 % (42.0-75.0); Hemoglobin 12.5 g/dL (12.0-16.0); Mean Corpuscular HGB CONC 32.5 g/dL (32.0-36.0); Mean Corpuscular Hemoglobin 28.4 pg (27.0-31.0); Mean Corpuscular Volume 87.6 fL (78.0-98.0); Mean Platelet Volume 7.4 fL (7.4-10.4); Platelet Count 371 thou/uL (130-400); RBC Distribution Width 12.6 % (11.5-14.5); Red Blood Cell (RBC) Count 4.39 mill/uL (4.20-5.40); White Blood Cell (WBC) Count 12.8 thou/uL (4.8-10.8)
[2022-03-28] MEDS ORDERED: Ondansetron PF 4 MG/2 ML Vial ONE (23:55)
[2022-03-28] MEDS ORDERED: Morphine 4 MG/ML VIAL ONE (23:55)
[2022-03-28 23:58] LABS: BHCG - Serum Negative (NEGATIVE); Pregs Control Background? CLEAR/WHITE (CLR/WHITE); Pregs Control Bar Appear? YES (CONTROL BAR)
[2022-03-29 00:04] LABS: ALT (SGPT) 13 U/L (8-55); AST (SGOT) 14 U/L (5-34); Albumin 3.8 g/dL (3.5-5.0); Alkaline Phosphatase 91 U/L (40-110); Anion Gap 13 mmol/L (10-20); BUN (Urea Nitrogen) 12 mg/dL (7.0-18.7); Bilirubin, Total 0.3 mg/dL (0.2-1.2); Calc. Creatinine Clearance 0 mL/min (70-130); Calcium 9.2 mg/dL (7.8-10.44); Carbon Dioxide 23 mmol/L (22-29); Chloride 105 mmol/L (98-107); Globulin 3.8 g/dL (2.4-3.5); Glucose 97 mg/dL (70-105); Potassium 4.2 mmol/L (3.5-5.1); Protein, Total 7.6 g/dL (6.0-8.3); Sodium 137 mmol/L (136-145)
[2022-03-29 00:32] LABS: Bilirubin Negative (Negative); Blood, Urine Negative (Negative); Clarity Clear (Clear); Glucose, Urine (Dipstick) Normal (Negative); Ketone, Urine Negative (Negative); Leukocyte Negative Leu/uL (Negative); Nitrite Negative (Negative); Protein, Urine (Dipstick) Negative (Neg-Trace); Specific Gravity, Urine 1.021 (1.002-1.036); Urobilinogen Normal mg/dL (Less than 2); pH, Urine 6.5 (5.0-9.0)
== END 2022-03-29 01:24 | disposition home or self-care (01) ==
LOC: ERS 22:39
DX: R10.31 Right lower quadrant pain (principal)
CPT/HCPCS: 36415; 74177; 80053; 81003; 84703; 85025; 86140; 96374; 96375; J2270; J2405

== ENCOUNTER 2023-06-27 07:07 | Day surgery (SDC) | payer BC ==
[2023-06-27] MEDS ORDERED: PHENYLEPHRINE-NS 100 MCG/ML 10 ML SYRINGE ONE (08:35)
[2023-06-27] MEDS ORDERED: Glycopyrrolate 0.2 MG/ML 5 ML SYRINGE ONE (08:35)
[2023-06-27] MEDS ORDERED: Rocuronium Bromide 10 MG/ML (10ML VIAL) ONE (08:35)
[2023-06-27] MEDS ORDERED: NEOSTIGMINE 3 MG/3 ML SYR 3 MG/3 ML SYRINGE ONE (08:35)
[2023-06-27] MEDS ORDERED: Ondansetron PF 4 MG/2 ML Vial ONE (08:35)
[2023-06-27] MEDS ORDERED: PROPOFOL 200 MG/20 ML VIAL ONE (08:35)
[2023-06-27] MEDS ORDERED: Lidocaine 1% PF 5 ML VIAL ONE (08:35)
[2023-06-27] MEDS ORDERED: Ketorolac Tromethamine 30 MG/ML VIAL ONE (08:35)
[2023-06-27] MEDS ORDERED: Dexamethasone 20 MG/5 ML VIAL ONE (08:35)
[2023-06-27] MEDS ORDERED: Fentanyl 250 MCG/5 ML VIAL ONE (09:05)
[2023-06-27] MEDS ORDERED: Dexmedetomidine 200 MCG/2 ML VIAL ONE (09:05)
[2023-06-27] MEDS ORDERED: Bupivacaine 0.25% HCL 30 ML VIAL ONE (09:07)
[2023-06-27] MEDS ORDERED: EPINEPHrine 1 MG/ML AMP ONE (09:07)
[2023-06-27] MEDS ORDERED: CEFAZOLIN 2 GM in Sodium Chloride 0.9% 100 ML IVPB SCH (09:15)
[2023-06-27] MEDS ORDERED: Ipratropium/Albuterol 3 ML NEB NEB PRN (11:03)
[2023-06-27] MEDS ORDERED: Ondansetron PF 4 MG/2 ML Vial IVP PRN (11:03)
[2023-06-27] MEDS ORDERED: Acetaminophen/Codeine 30-300mg Tablet PO PRN (11:03)
[2023-06-27] MEDS ORDERED: Morphine 2 MG/ML VIAL SLOW IVP PRN (11:03)
[2023-06-27] MEDS ORDERED: fentaNYL 50 mcg/mL 1 mL Vial ONE (11:31)
[2023-06-27] MEDS ORDERED: HYDROcodone/Acetaminophen 5/325 mg Tablet ONE (12:17)
[2023-06-27] MEDS ORDERED: Famotidine/PF 20 mg/2ml Vial SLOW IVP SCH (21:00)
[2023-06-27] MEDS ORDERED: Famotidine 20 MG TAB PO SCH (21:00)
== END 2023-06-27 14:00 | disposition home or self-care (01) ==
LOC: SDC/OP 07:07
PROVIDERS: ATTEND Specialist
PROC: 0DTJ4ZZ Resection of Appendix, Percutaneous Endoscopic Approach (ICD-10-PCS; principal; 2023-06-27)
DX: K35.80 Unspecified acute appendicitis (principal); E66.9 Obesity, unspecified; F41.9 Anxiety disorder, unspecified; F32.A Depression, unspecified; Z80.0 Family history of malignant neoplasm of digestive organs; Z91.040 Latex allergy status; Z79.899 Other long term (current) drug therapy
CPT/HCPCS: 88304; A4649; C1776; J0171; J1100; J1885; J2405; J2704; J3010; S0020